=== PATIENT | male | born 1960 | race Caucasian/White ===

== ENCOUNTER 2019-01-24 10:17 | Day surgery (SDC) | payer OTHER ==
[~2019-01-24] VITALS: Ht 170.2 cm; Wt 84.5 kg
[2019-01-24 10:55] VITALS: Ht 170.2 cm; Wt 84.5 kg
[2019-01-24 10:59] VITALS: BP 120/78; PULSE 61; RESP 16
[2019-01-24] MEDS ORDERED: PROPOFOL 20 ML ONE (11:10)
== END 2019-01-24 12:37 | disposition home or self-care (01) ==
LOC: GIL 10:17
PROVIDERS: ATTEND Internal Medicine Gastroenterology
DX: Z12.11 Encounter for screening for malignant neoplasm of colon (principal); K64.8 Other hemorrhoids